=== PATIENT | female | born 1960 | race Caucasian/White ===

== ENCOUNTER 2022-02-18 17:34 | Observation (INO) ==
[2022-02-18 18:37] LABS: Basophils # 0.1 10*3/uL (0.0-0.2); Basophils % 0.8 % (0.0-0.8); Eosinophils # 0.1 10*3/uL (0.0-0.87); Eosinophils % 1.6 % (0.00-10.9); Hematocrit 38.3 VOL% (35.7-47.0); Hemoglobin 12.7 GM/DL (12.0-16.0); Immature Granulocytes % 0.4 %; Immature Granulocytes Absolute 0.03 #; Lymphocytes # 3.2 10*3/uL (1.4-4.0); Lymphocytes % 40.7 % (21.3-54.2); Mean Corpuscular HGB Conc 33.2 GM/DL (32-36); Mean Corpuscular Volume 91.6 FL (87-102); Mean Platelet Volume 9.8 FL (9.6-12.0); Monocytes # 0.6 10*3/uL (0.11-0.8); Monocytes % 7.3 % (1.7-12.7); Neutrophils % 49.2 % (38.7-73.9); Platelet Count 310 T/CUMM (130-400); Red Blood Count 4.18 MC/CUMM (3.8-5.5); Red Cell Distribution Width 12.3 % (9.3-17.3); White Blood Count 7.9 T/CUMM (4-12)
[2022-02-18] MEDS ORDERED: MORPHINE 2 MG/1 ML SYRINGE IV STA (18:38)
[2022-02-18] MEDS ORDERED: ONDANSETRON 4 MG/2 ML VIAL IV ONE (18:38)
[2022-02-18 18:48] LABS: Alanine Aminotransferase 21 U/L (13-56); Albumin 4.2 G/DL (3.4-5.0); Alkaline Phosphatase 65 U/L (45-117); Aspartate Amino Transferase 11 U/L (0-37); Bilirubin,Total < 0.39 MG/DL (0.20-1.00); Blood Urea Nitrogen 15 MG/DL (7-18); Calcium 8.9 MG/DL (8.5-10.1); Carbon Dioxide 31 MMOL/L (21-32); Chloride 103 MMOL/L (98-107); Glucose 88 MG/DL (74-106); Osmolality,Calculated 278.4 MOS/KG (273-304); Potassium 3.8 MMOL/L (3.5-5.1); Sodium 140 MMOL/L (136-145); Total Protein 6.3 G/DL (6.4-8.2)
[2022-02-18] MEDS ORDERED: NITROGLYCERIN SL 0.4 MG TABLET SL STA (18:56)
[2022-02-18] MEDS ORDERED: NITROGLYCERIN SL 0.4 MG TABLET SL ONE (18:57)
[2022-02-18] MEDS ORDERED: ASPIRIN 325 MG TABLET PO STA (18:58)
[2022-02-18] MEDS ORDERED: ORPHENADRINE 60 MG/2 ML VIAL IV STA (19:28)
[2022-02-18] MEDS ORDERED: KETOROLAC 30 MG/1 ML VIAL IV STA (19:28)
[2022-02-18] MEDS ORDERED: ONDANSETRON 4 MG/2 ML VIAL IV PRN (20:54)
[2022-02-18] MEDS ORDERED: MORPHINE 2 MG/1 ML SYRINGE IV PRN (20:54)
[2022-02-18] MEDS ORDERED: ACETAMINOPHEN 325 MG TABLET PO PRN (20:54)
[2022-02-18] MEDS ORDERED: hydrALAZINE 20 MG/1 ML VIAL IV PRN (20:54)
[2022-02-18] MEDS ORDERED: ENOXAPARIN 40 MG/0.4 ML SYRINGE SUBCUT SCH (21:00)
[2022-02-18] MEDS ORDERED: ZALEPLON 5 MG CAPSULE PO PRN (21:13)
[2022-02-18] MEDS ORDERED: CLORAZEPATE 3.75 MG TABLET PO PRN (21:26)
[2022-02-19 06:42] LABS: Calcium 8.8 MG/DL (8.5-10.1); Osmolality,Calculated 281.3 MOS/KG (273-304); Potassium 3.5 MMOL/L (3.5-5.1)
[2022-02-19 06:45] LABS: Risk Ratio 3.25; VLDL Cholesterol 47.8 MG/DL
[2022-02-19] MEDS ORDERED: ASPIRIN EC 325 MG TABLET PO SCH (09:00)
[2022-02-19] MEDS ORDERED: PANTOPRAZOLE 40 MG TABLET PO SCH (09:00)
[2022-02-19 16:17] VITALS: BP 130/60
[2022-02-20] MEDS ORDERED: LOSARTAN 50 MG TABLET PO SCH (09:00)
== END 2022-02-19 17:40 | disposition home or self-care (01) ==
LOC: N.ED 17:34 → N.EDINP 17:34 → N.2W 02-19 01:55
PROVIDERS: ADMIT Internal Medicine; ATTEND Internal Medicine